=== PATIENT | male | born 1955 | race Caucasian/White ===

== ENCOUNTER 2018-12-08 08:16 | Day surgery (SDC) | payer OTHER ==
[2018-12-08] MEDS ORDERED: CEFAZOLIN SODIUM IN 0.9 % NACL 2 GM/100 ML BAG IV ONE (08:34)
[2018-12-08] MEDS ORDERED: LACTATED RINGERS 1,000 ML IV ONE (08:51)
--- NOTE | 2018-12-08 09:15 | ANESTHESIA ---
Pre-Anesthesia VS, & Labs - Diagnosis 3cm posterior neck lipoma - Procedure excision of posterior neck lesion Vital Signs: Temp Pulse Resp BP Pulse Ox 36 C L 61 18 127/91 H 96 12/08/18 08:37 12/08/18 08:37 12/08/18 08:37 12/08/18 08:37 12/08/18 08:37 Height 6 ft 1 in Weight (kg) 102.2 kg - NPO Last Fluid Intake: 4oz H2O at 4am Home Medications and Allergies Home Medications: Ambulatory Orders Aspirin [Aspirin EC] 81 mg PO DAILY 12/02/18 Atorvastatin Calcium 40 mg PO QPM 12/02/18 Ferrous Sulfate 325 mg PO ONCE 12/02/18 Ipratropium Lares 2 inh NS BID 12/02/18 Lactobacillus Acidophilus [Probiotic Acidophilus] 2 each PO DAILY 12/02/18 Losartan Potassium 25 mg PO DAILY 12/02/18 Mag Carb/Al Hydrox/Alginic AC [Gaviscon Extra Strength Liquid] 2 - 4 tsp PO QID PRN 12/02/18 PARoxetine HCl [Paroxetine HCl] 30 mg PO DAILY 12/02/18 Pantoprazole [Protonix] 40 mg PO BID 12/02/18 Psyllium [Metamucil] 1 each PO DAILY 12/02/18 Tamsulosin HCl [Flomax] 0.4 mg PO DAILY 12/02/18 Trazodone HCl 50 - 100 mg PO QPM PRN 12/02/18 Aspirin [Aspirin EC] 81 mg PO DAILY 12/02/18 Atorvastatin Calcium 40 mg PO QPM 12/02/18 Ferrous Sulfate 325 mg PO ONCE 12/02/18 Ipratropium Lares 2 inh NS BID 12/02/18 Lactobacillus Acidophilus [Probiotic Acidophilus] 2 each PO DAILY 12/02/18 Losartan Potassium 25 mg PO DAILY 12/02/18 Mag Carb/Al Hydrox/Alginic AC [Gaviscon Extra Strength Liquid] 2 - 4 tsp PO QID PRN 12/02/18 PARoxetine HCl [Paroxetine HCl] 30 mg PO DAILY 12/02/18 Pantoprazole [Protonix] 40 mg PO BID 12/02/18 Psyllium [Metamucil] 1 each PO DAILY 12/02/18 Tamsulosin HCl [Flomax] 0.4 mg PO DAILY 12/02/18 Trazodone HCl 50 - 100 mg PO QPM PRN 12/02/18 Allergies/Adverse Reactions: Allergies Allergy/AdvReac Type Severity Reaction Status Date / Time amoxicillin [From Augmentin] Allergy elevated Verified 12/02/18 15:47 LVTs clavulanic acid Allergy elevated Verified 12/02/18 15:47 [From Augmentin] LVTs Penicillins Allergy Hives Verified 12/02/18 15:47 Anes History & Medical History - Anesthetic History Anesthesia Complications: reports: No previous complications - Medical History Cardiovascular: reports: Hypertension, Atrial fibrillation (s/p ablation) Pulmonary: reports: Pneumonia (5 years ago), Sleep apnea, CPAP use Gastrointestinal: reports: GERD (controlled with medication.), Hiatal hernia, Colon polyps, Other (GAVE syndrome) Urinary: reports: Benign prostate hypertrophy, Frequency Neuro: reports: Other (vertigo) Musculoskeletal: reports: Osteoarthritis Endocrine/Autoimmune: reports: None Blood Disorders: reports: None Skin: reports: None Smoking Status: Never smoker Psychosocial: reports: Depression, Anxiety, Alcohol (3 glasses of wine 4x per week) - Surgical History General: Colonoscopy, EGD, Other Eyes Ears Nose Throat (EENT): Other (sinus surgery) Cardiothoracic: Other (ablation) Exam General: Alert, Oriented x3, Cooperative, No acute distress Dental: WNL Mouth Openin Fingerbreadth Neck Mobility: Normal Mallampati classification: IV Thyromental Distance: greater than 6 cm Respiratory: Lungs clear, Normal breath sounds, No respiratory distress, No accessory muscle use Cardiovascular: Regular rate, Normal S1, Normal S2, No murmurs Mental/Cognitive Status: Alert/Oriented X3, Normal for patient Plan Anesthesia Type: MAC Consent for Procedure(s) Verified and Reviewed: Yes Code Status: Attempt Resuscitation ASA classification: 2-Mild systemic disease Is this case an emergency?: No
[2018-12-08] MEDS ORDERED: LIDOCAINE 1% 50 ML MDV ONE (09:46)
[2018-12-08] MEDS ORDERED: BUPIVACAINE 0.5%-EPI 1:200000 PF 30 ML VIAL ONE (09:46)
[2018-12-08] MEDS ORDERED: BUPIVACAINE 0.5%-EPI 1:200000 PF 30 ML VIAL SUBQ ONE (10:20)
[2018-12-08] MEDS ORDERED: LIDOCAINE 1% 50 ML MDV SUBQ ONE (10:21)
--- NOTE | 2018-12-08 10:41 | OPERATIVE REPORT ---
Operative Report - General Planned Procedure: Excision of posterior neck lipoma Pre-Op Diagnosis: Posterior neck lipoma Procedure Performed: Excision of posterior neck lipoma Post Op Diagnosis: Posterior neck lipoma - Procedure Note Primary Surgeon: Dustin Anesthesia Provider: DURGA Olivares Anesthesia Technique: Local, MAC Pathology: Mass to pathology in formalin Estimated Blood Loss (mL): 10 Indications: Neck pain Findings: 3x3 cm round mass densely invested in the underlying muscle Complications: None apparent - Other Other Information/Narrative: After obtaining informed consent, the patient is brought to the operating room and placed in the Right lateral decubitus position on the operation table. Following placement of appropriate monitors and padding of all bony prominences, the patient underwent sedation under monitored anesthesia care.The posterior neck was prepped and draped in the standard surgical fashion. A timeout was held per IDOAP protocol. Following infiltration with local anesthetic to create a field block, a horizontal incision was created directly over the lesion carried down through the skin is of cutaneous tissue. We encountered a mass that was fairly well- circumscribed but densely adherent to both the Overlying dermis and underlying muscle. This was carefully dissected free from both of those structures using a combination of sharp dissection and cautery. The mass was eventually delivered into the field.The wound was checked for hemostasis and irrigated with warm saline solution. A single square of Surgicel was placed against the muscle to provide adequate hemostasis without causing spasm.The wound was then checked for hemostasis and additional local anesthetic was applied. Once we were satisfied that we had achieved hemostasis, the wound was then closed in 2 layers with Vicryl and Monocryl suture. All sponge, needle, and instrument counts were correct at the conclusion of the case. The patient was allowed awaken from ane sthesia without difficulty and taken to the postanesthesia care unit in good condition.
[2018-12-08] MEDS ORDERED: MIDAZOLAM 2 MG/2 ML VIAL IVP ONE (10:48)
[2018-12-08] MEDS ORDERED: PROPOFOL 200 MG/20 ML VIAL IVP ONE (10:48)
[2018-12-08] MEDS ORDERED: fentaNYL 100 MCG/2 ML VIAL IVP ONE (10:48)
[2018-12-08] MEDS ORDERED: HYDROcod/ACETAM 5/325 MG TABLET PO PRN (10:49)
[2018-12-08] MEDS ORDERED: HYDROmorphone 0.5 MG/0.5 ML SYRINGE IVP PRN (10:49)
[2018-12-08] MEDS ORDERED: ONDANSETRON 4 MG/2 ML VIAL IVP PRN (10:49)
[2018-12-08 11:19] VITALS: BP 125/71
== END 2018-12-08 08:17 | disposition home or self-care (01) ==
LOC: SDS 08:16
PROVIDERS: ATTEND Surgery
PROC: 0JB50ZZ Excision of Left Neck Subcutaneous Tissue and Fascia, Open Approach (ICD-10-PCS; principal; 2018-12-08 09:45)
DX: D17.0 Benign lipomatous neoplasm of skin and subcutaneous tissue of head, face and neck (principal); I48.91 Unspecified atrial fibrillation; I25.10 Atherosclerotic heart disease of native coronary artery without angina pectoris; I10 Essential (primary) hypertension; G47.30 Sleep apnea, unspecified; R42 Dizziness and giddiness
CPT/HCPCS: 11424; A9270; J0690; J7120